=== PATIENT | male | born 1955 | race Caucasian/White ===

== ENCOUNTER 2019-12-01 13:32 | Outpatient (CLI) | payer MEDICARE ==
[~2019-12-01 13:32] MED LIST: ALLO100T30 PO; ASPI81TA45 PO; ATOR-2 PO; CARB200T4 PO; GABA800T5 PO; HYDR-3245 PO; IBUP-1223 PO; IPRA4AER INH; LISI30TA4 PO; METF750T42 PO; METO50TA82 PO; PENT400T12 PO; VENL75TA PO; ZOLP10TA PO
[2019-12-01] MEDS ORDERED: OMNIPAQUE 350 MG/ML, 100ML BOTTLE ONE (15:31)
[2019-12-05] MEDS ORDERED: CLOP75TA PO (11:11)
[2019-12-05] MEDS ORDERED: HYDR-3246 PO (11:12)
== END 2019-12-01 23:59 | disposition home or self-care (01) ==
LOC: RAD 13:32
PROVIDERS: ATTEND Surgery
DX: I65.23 Occlusion and stenosis of bilateral carotid arteries (principal); J32.9 Chronic sinusitis, unspecified; J34.89 Other specified disorders of nose and nasal sinuses; R20.2 Paresthesia of skin; G46.3 Brain stem stroke syndrome
CPT/HCPCS: 70496; 70498; Q9967